=== PATIENT | female | born 1995 | race Caucasian/White ===

== ENCOUNTER 2024-10-16 08:04 | Emergency (ER) | payer BC ==
[~2024-10-16] VITALS: Ht 160 cm; Wt 63.8 kg
[2024-10-16 08:13] VITALS: TEMP 98.2
[2024-10-16 09:29] VITALS: BP 121/84; PULSE 100; RESP 14; O2SAT 100
== END 2024-10-16 09:36 | disposition home or self-care (01) ==
LOC: ER 08:05
DX: M94.0 Chondrocostal junction syndrome [Tietze] (principal)
CPT/HCPCS: 93005; 99283